=== PATIENT | female | born 2000 | race Caucasian/White ===

== ENCOUNTER 2020-08-27 19:37 | Observation (INO) | payer SELFPAY ==
[~2020-08-27] VITALS: Ht 152.4 cm; Wt 63.5 kg
[2020-08-27] MEDS ORDERED: ACETAMINOPHEN 325MG TABLET PO NR (20:28)
[2020-08-27] MEDS ORDERED: PREN-176 MT (20:32)
[2020-08-27 21:12] LABS: CLARITY URINE CLOUDY (CLEAR); COLOR URINE YELLOW (YELLOW); KETONES URINE NEGATIVE (NEGATIVE); LEUKOCYTE ESTERASE URINE 2+ (NEGATIVE); NITRITE URINE NEGATIVE (NEGATIVE); OCCULT BLOOD URINE NEGATIVE (NEGATIVE); PH URINE 6.5 (4.5-8.0); PROTEIN URINE NEGATIVE (NEGATIVE); SPECIFIC GRAVITY URINE 1.004 (1.005-1.030)
== END 2020-08-27 22:59 | disposition home or self-care (01) ==
LOC: 8 EST LDRP 19:37
PROVIDERS: ADMIT Obstetrics & Gynecology; ATTEND Obstetrics & Gynecology
DX: O26.892 Other specified pregnancy related conditions, second trimester (principal); R10.30 Lower abdominal pain, unspecified; Z3A.25 25 weeks gestation of pregnancy
CPT/HCPCS: 81003; G0378; 99281